=== PATIENT | male | born 1940 | race Caucasian/White ===

== ENCOUNTER 2022-03-17 18:24 | Inpatient (IN) | payer MEDICARE, OTHER ==
[2022-03-17 19:09] LABS: ANION GAP 10.2 mEq/L (7-13); CHLORIDE,CL 98 mmol/L (98-107); SODIUM,NA 134 mmol/L (136-145)
[2022-03-17 19:38] LABS: ESTIMATED GFR 86 mL/min (>=60)
[2022-03-17] MEDS ORDERED: Iopamidol 755 Mg/ML 100 ML Bottle IVPUSH ONE (20:18)
[2022-03-17] MEDS ORDERED: Heparin Sodium 5,000 Units/ML Vial IVPUSH ONE (20:19)
[2022-03-17] MEDS ORDERED: Clopidogrel 75 MG Tab PO ONE (20:26)
[2022-03-17] MEDS ORDERED: Heparin Sodium/0.45% NaCl 25,000 UNITS/500 ML BAG IV SCH (20:30)
[2022-03-17] MEDS ORDERED: Acetaminophen/HYDROcodone 325-5 MG Tab PO PRN (22:20)
[2022-03-17] MEDS ORDERED: Acetaminophen 325 MG Tab PO PRN (22:20)
[2022-03-17] MEDS ORDERED: Polyethylene Glycol 3350 Powder 17 GM Packet PO PRN (22:23)
[2022-03-17] MEDS ORDERED: Docusate Sodium 100 MG Cap PO PRN (22:23)
[2022-03-17] MEDS ORDERED: Bisacodyl 5 MG Tab PO PRN (22:23)
[2022-03-17] MEDS ORDERED: Albuterol/Ipratropium 3.0-0.5 MG/3 ML Neb Soln NEB PRN (22:23)
[2022-03-17] MEDS ORDERED: Ondansetron 4 MG/2 ML SDV IVPUSH PRN (22:23)
[2022-03-17] MEDS ORDERED: HYDROmorphone 0.5 MG/0.5 ML Syringe IVPUSH PRN (22:23)
[2022-03-17] MEDS ORDERED: Metoprolol Tartrate 5 MG/5 ML SDV IVPUSH PRN (23:11)
[2022-03-17] MEDS ORDERED: hydrALAZINE 20 MG/ML SDV IVPUSH PRN (23:12)
[2022-03-17] MEDS ORDERED: Melatonin 3 MG Tab PO PRN (23:20)
[2022-03-17] MEDS ORDERED: Morphine 2 MG/ML SYRINGE IVPUSH PRN (23:21)
[2022-03-17] MEDS ORDERED: Nitroglycerin 0.4 MG Tab.SL SL PRN (23:21)
[2022-03-17] MEDS ORDERED: Ziprasidone Mesylate 20 MG Vial IM PRN (23:27)
[2022-03-17] MEDS ORDERED: Sodium Chloride 0.9% 1,000 ML IV SCH (23:30)
[2022-03-18] MEDS ORDERED: Heparin Sodium 5,000 Units/ML Vial IVPUSH ONE (05:03)
[2022-03-18 05:56] LABS: ANION GAP 12.1 mEq/L (7-13)
[2022-03-18] MEDS ORDERED: Dextrose 5%-0.9% NaCl 1,000 ML IV SCH (08:30)
[2022-03-18 08:35] VITALS: BP 122/75; PULSE 73
[2022-03-18] MEDS ORDERED: Clopidogrel 75 MG Tab PO SCH (09:00)
== END 2022-03-18 09:45 | DRG 281 ==
LOC: DL.ED 18:24 → DL.MS 21:35
PROVIDERS: ADMIT Internal Medicine; ATTEND Internal Medicine
DX: I21.4 Non-ST elevation (NSTEMI) myocardial infarction (principal); E87.1 Hypo-osmolality and hyponatremia; M19.90 Unspecified osteoarthritis, unspecified site; E78.5 Hyperlipidemia, unspecified; F17.200 Nicotine dependence, unspecified, uncomplicated; F17.210 Nicotine dependence, cigarettes, uncomplicated; E88.09 Other disorders of plasma-protein metabolism, not elsewhere classified; R73.9 Hyperglycemia, unspecified; I10 Essential (primary) hypertension; F10.20 Alcohol dependence, uncomplicated; L40.9 Psoriasis, unspecified; Z71.6 Tobacco abuse counseling; Z20.822 Contact with and (suspected) exposure to COVID-19
CPT/HCPCS: 36415; 71045; 71260; 80053; 80061; 80307; 81001; 83605; 83735; 83880; 84484; 85025; 85379; 85610; 85730; 93005; 96365; 99285-25; A9270-GY; J1644; Q9967; U0002

== ENCOUNTER 2022-09-07 08:02 | Day surgery (SDC) | payer MEDICARE, OTHER ==
[~2022-09-07 08:02] MED LIST: Acetaminophen 325 MG Tab PO PRN; Acetaminophen/Codeine 300-30 MG Tab PO PRN; Apraclonidine 0.5% Ophth Soln 5 ML Bot EYERT ONE; Balanced Salt Solution Ophth Irrig 500 ML Bottle IOCULAR ONE; Cataract Ophth Solution EYERT ONE; Chondroitin Sulfate/Hyaluronate Sodium Ophth Inj 0.75 ML Syringe EYERT ONE; Dexamethasone/Neomycin/Polymyxin B Ophth Oint 3.5 GM Tube EYERT ONE; Diclofenac Sodium 0.1% Ophth Soln 5 ML Bottle EYERT ONE; Lidocaine 1% 30 ML SDV ONE; Moxifloxacin 0.5% Ophth Soln 3 ML Bottle EYERT ONE; Ondansetron 4 MG/2 ML SDV IVPUSH PRN; Phenylephrine 10% Ophth Soln 5 ML Bot EYERT PRN; Povidone-Iodine 5% Sterile Ophth Soln 30 ML Bottle EYERT ONE; Proparacaine 0.5% Ophth Soln 15 ML Bottle EYERT ONE; Sodium Chloride 0.9% 10 ML Syringe FLUSH PRN; Timolol Maleate 0.5% Ophth Soln 5 ML Bottle EYERT ONE; Tropicamide 1% Ophth Soln 15 ML Bottle EYERT ONE; Vancomycin 500 MG SDV EYERT ONE
[2022-09-07] MEDS ORDERED: Dexamethasone 4 MG/ML SDV IV ONE (08:03)
[2022-09-07] MEDS ORDERED: Midazolam 1 MG/ML 2 ML SDV IV ONE (08:03)
[2022-09-07] MEDS ORDERED: Sodium Chloride 0.9% 10 ML Syringe IV ONE (08:03)
[2022-09-07] MEDS ORDERED: Proparacaine 0.5% Ophth Soln 15 ML Bottle EYERT ONE (10:19)
[2022-09-07] MEDS ORDERED: Povidone-Iodine 5% Sterile Ophth Soln 30 ML Bottle EYERT ONE (10:19)
[2022-09-07] MEDS ORDERED: Dexamethasone/Neomycin/Polymyxin B Ophth Oint 3.5 GM Tube EYERT ONE (10:21)
[2022-09-07] MEDS ORDERED: Lidocaine 1% 30 ML SDV ONE (10:22)
[2022-09-07] MEDS ORDERED: Balanced Salt Solution Ophth Irrig 500 ML Bottle IOCULAR ONE (10:23)
[2022-09-07] MEDS ORDERED: Vancomycin 500 MG SDV EYERT ONE (10:24)
[2022-09-07] MEDS ORDERED: Chondroitin Sulfate/Hyaluronate Sodium Ophth Inj 0.75 ML Syringe EYERT ONE (10:25)
[2022-09-07] MEDS ORDERED: Dexamethasone 4 MG/ML SDV ONE (10:33)
[2022-09-07 10:48] VITALS: PULSE 52
[2022-09-07 11:11] VITALS: BP 156/83
== END 2022-09-07 11:17 | disposition home or self-care (01) ==
LOC: DL.SDS 08:02
PROVIDERS: ATTEND Ophthalmology
DX: H25.811 Combined forms of age-related cataract, right eye (principal); I10 Essential (primary) hypertension; E78.5 Hyperlipidemia, unspecified; F17.210 Nicotine dependence, cigarettes, uncomplicated; Z79.899 Other long term (current) drug therapy; Z79.82 Long term (current) use of aspirin
CPT/HCPCS: 00142; 66984; A9270; J1100; J2250; J3370; J3490; V2632

== ENCOUNTER 2022-09-11 15:31 | Inpatient (IN) | payer MEDICARE, OTHER ==
[2022-09-11] MEDS ORDERED: diphenhydrAMINE 50 MG/ML SDV IVPUSH ONE (17:14)
[2022-09-11] MEDS ORDERED: HYDROmorphone 0.5 MG/0.5 ML Syringe IVPUSH ONE (17:15)
[2022-09-11] MEDS ORDERED: diphenhydrAMINE 50 MG/ML SDV IV ONE (17:29)
[2022-09-11] MEDS ORDERED: HYDROmorphone 1 MG/ML Syringe IV ONE ×2 (17:29→19:13)
[2022-09-11 17:41] LABS: ANION GAP 14.6 mEq/L (7-13); CHLORIDE,CL 98 mmol/L (98-107); SODIUM,NA 134 mmol/L (136-145)
[2022-09-11 17:42] LABS: ESTIMATED GFR 69 mL/min (>=60)
[2022-09-11] MEDS ORDERED: Sodium Chloride 0.9% 1,000 ML IV ONE ×2 (17:54→19:13)
[2022-09-11 18:11] LABS: AMPHETAMINES,URINE NEGATIVE (NEGATIVE); BARBITURATES,URINE NEGATIVE (NEGATIVE); BENZODIAZEPINE,URINE NEGATIVE (NEGATIVE); MDMA (ECSTASY), URINE NEGATIVE (NEGATIVE); METHADONE,URINE NEGATIVE (NEGATIVE); METHAMPHETAMINES,URINE NEGATIVE (NEGATIVE); OPIATES,URINE NEGATIVE (NEGATIVE); OXYCODONE,URINE NEGATIVE (NEGATIVE); PHENCYCLIDINE,URINE NEGATIVE (NEGATIVE); TCA,URINE NEGATIVE (NEGATIVE)
[2022-09-11 18:15] LABS: CORONAVIRUS COVID-19 NAA NEGATIVE (NEGATIVE); RESPIRATORY SYNCYTIAL VIR NAA POSITIVE (NEGATIVE)
[2022-09-11 18:29] LABS: PTT,PARTIAL THROMBOPLSTIN TIME 26.5 SEC (22.0-34.0)
[2022-09-11] MEDS ORDERED: HYDROmorphone 1 MG/ML Syringe IVPUSH ONE (18:42)
[2022-09-11] MEDS ORDERED: Acetaminophen/HYDROcodone 325-5 MG Tab PO PRN (22:25)
[2022-09-11] MEDS ORDERED: Magnesium Hydroxide 400 MG/5 ML Susp 30 ML Cup PO PRN (22:25)
[2022-09-11] MEDS ORDERED: HYDROmorphone 0.5 MG/0.5 ML Syringe IVPUSH PRN (22:25)
[2022-09-11] MEDS ORDERED: Albuterol/Ipratropium 3.0-0.5 MG/3 ML Neb Soln NEB PRN (22:25)
[2022-09-11] MEDS ORDERED: Ondansetron 4 MG/2 ML SDV IVPUSH PRN (22:25)
[2022-09-11] MEDS ORDERED: Polyethylene Glycol 3350 Powder 17 GM Packet PO PRN (22:25)
[2022-09-11] MEDS ORDERED: hydrALAZINE 20 MG/ML SDV IVPUSH PRN (22:29)
[2022-09-11] MEDS ORDERED: Metoprolol Tartrate 5 MG/5 ML SDV IVPUSH PRN (22:29)
[2022-09-12] MEDS: Acetaminophen 325 MG Tab PO PRN ×2 (01:38→21:20)
[2022-09-12] MEDS ORDERED: Sodium Chloride 0.9% 500 ML IV SCH ×2 (02:45→04:00)
[2022-09-12] MEDS ORDERED: Midodrine 2.5 MG Tab PO ONE (02:47)
[2022-09-12] MEDS ORDERED: Lactated Ringers 1,000 ML IV SCH (04:30)
[2022-09-12] MEDS ORDERED: Fluconazole/Normal Saline 200 MG in Premix Bag 1 BAG IV ONE (04:59)
[2022-09-12 05:32] LABS: ANION GAP 11.1 mEq/L (7-13)
[2022-09-12] MEDS: Piperacillin/Tazobactam 3.375 GM in Sodium Chloride 0.9% 100 ML IV SCH ×3 (05:58→19:06)
[2022-09-12] MEDS ORDERED: Magnesium Sulfate/Water 2 GM in Premix Bag 1 BAG IV ONE (06:11)
[2022-09-12] MEDS: Saccharomyces Boulardii (Probiotic) 250 MG Cap PO SCH ×2 (09:27→21:20)
[2022-09-12] MEDS: Nicotine 21 MG/24 Hr Patch TRDERM SCH (09:27)
[2022-09-12] MEDS: Metoprolol Tartrate 25 MG Tab PO SCH ×2 (09:31→21:25)
[2022-09-12] MEDS: prednisoLONE Acetate 1% Ophth Susp 5 ML Bottle EYERT SCH ×2 (18:59→21:27)
[2022-09-12] MEDS: OFLOXACIN OPTH EYERT SCH ×2 (18:59→21:27)
[2022-09-12] MEDS ORDERED: Melatonin 3 MG Tab PO PRN (20:38)
[2022-09-12] MEDS: guaiFENesin/Dextromethorphan 100-10 MG/5 ML Soln 5 ML Cup PO PRN (21:20)
[2022-09-12] MEDS: KETOROLAC 0.5% EYERT SCH (21:27)
[2022-09-12] MEDS: OPTH EYERT SCH (21:27)
[2022-09-13] MEDS: Piperacillin/Tazobactam 3.375 GM in Sodium Chloride 0.9% 100 ML IV SCH ×5 (00:36→23:36)
[2022-09-13] MEDS: Midodrine 2.5 MG Tab PO PRN ×2 (00:44→23:57)
[2022-09-13] MEDS ORDERED: Pantoprazole 40 MG Tab.CR PO ONE (07:36)
[2022-09-13] MEDS ORDERED: Potassium Chloride 10 MEQ Tab.ER PO ONE (09:00)
[2022-09-13] MEDS ORDERED: Ergocalciferol (Vitamin D2) 1.25 MG Cap PO SCH (09:00)
[2022-09-13] MEDS: Metoprolol Tartrate 25 MG Tab PO SCH ×2 (09:32→21:07)
[2022-09-13] MEDS: Naproxen 250 MG Tab PO SCH ×2 (09:32→21:06)
[2022-09-13] MEDS: Saccharomyces Boulardii (Probiotic) 250 MG Cap PO SCH ×2 (09:33→21:05)
[2022-09-13] MEDS: Nicotine 21 MG/24 Hr Patch TRDERM SCH (09:34)
[2022-09-13] MEDS: Fluconazole/Normal Saline 100 MG in Premix Bag 1 BAG IV SCH (09:35)
[2022-09-13] MEDS: OPTH EYERT SCH ×2 (09:41→21:09)
[2022-09-13] MEDS: KETOROLAC 0.5% EYERT SCH ×2 (09:41→21:09)
[2022-09-13] MEDS: prednisoLONE Acetate 1% Ophth Susp 5 ML Bottle EYERT SCH ×4 (09:42→21:08)
[2022-09-13] MEDS: OFLOXACIN OPTH EYERT SCH ×4 (09:42→21:04)
[2022-09-13] MEDS: guaiFENesin/Dextromethorphan 100-10 MG/5 ML Soln 5 ML Cup PO PRN ×2 (10:50→23:59)
[2022-09-13] MEDS: Acetaminophen 325 MG Tab PO PRN (16:56)
[2022-09-13] MEDS: Pantoprazole 40 MG Tab.CR PO SCH (16:56)
[2022-09-13] MEDS: QUEtiapine 25 MG Tab PO SCH (21:06)
[2022-09-13] MEDS: Sodium Chloride 0.9% 10 ML Syringe FLUSH PRN (23:35)
[2022-09-14] MEDS: Pantoprazole 40 MG Tab.CR PO SCH ×2 (06:10→17:43)
[2022-09-14] MEDS: Piperacillin/Tazobactam 3.375 GM in Sodium Chloride 0.9% 100 ML IV SCH ×3 (06:11→17:51)
[2022-09-14] MEDS: Sodium Chloride 0.9% 10 ML Syringe FLUSH PRN (06:34)
[2022-09-14] MEDS: Metoprolol Tartrate 25 MG Tab PO SCH ×2 (09:55→21:45)
[2022-09-14] MEDS: Acetaminophen 325 MG Tab PO PRN (09:56)
[2022-09-14] MEDS: Fluconazole/Normal Saline 100 MG in Premix Bag 1 BAG IV SCH (09:56)
[2022-09-14] MEDS: Saccharomyces Boulardii (Probiotic) 250 MG Cap PO SCH ×2 (09:56→21:41)
[2022-09-14] MEDS: Naproxen 250 MG Tab PO SCH ×2 (09:56→21:42)
[2022-09-14] MEDS: KETOROLAC 0.5% EYERT SCH ×2 (09:57→21:46)
[2022-09-14] MEDS: Nicotine 21 MG/24 Hr Patch TRDERM SCH (09:57)
[2022-09-14] MEDS: OPTH EYERT SCH ×2 (09:57→21:46)
[2022-09-14] MEDS: prednisoLONE Acetate 1% Ophth Susp 5 ML Bottle EYERT SCH ×4 (09:58→21:43)
[2022-09-14] MEDS: OFLOXACIN OPTH EYERT SCH ×4 (09:58→21:40)
[2022-09-14] MEDS: guaiFENesin/Dextromethorphan 100-10 MG/5 ML Soln 5 ML Cup PO PRN ×2 (12:03→21:41)
[2022-09-14] MEDS: Albumin Human 25 GM in Premix Bag 1 BAG IV SCH ×3 (14:40→21:10)
[2022-09-14] MEDS ORDERED: Benzocaine/Cetylpyridinium/Menthol Lozenge MUCMEM PRN (17:40)
[2022-09-14] MEDS: QUEtiapine 25 MG Tab PO SCH (21:42)
[2022-09-15] MEDS: Sodium Chloride 0.9% 10 ML Syringe FLUSH PRN ×4 (00:19→09:08)
[2022-09-15] MEDS: Piperacillin/Tazobactam 3.375 GM in Sodium Chloride 0.9% 100 ML IV SCH ×4 (00:21→17:21)
[2022-09-15] MEDS: Albumin Human 25 GM in Premix Bag 1 BAG IV SCH (04:34)
[2022-09-15] MEDS: Pantoprazole 40 MG Tab.CR PO SCH ×2 (05:01→15:36)
[2022-09-15] MEDS: guaiFENesin/Dextromethorphan 100-10 MG/5 ML Soln 5 ML Cup PO PRN (05:01)
[2022-09-15 07:27] LABS: ANION GAP 10.8 mEq/L (7-13)
[2022-09-15] MEDS: Fluconazole/Normal Saline 100 MG in Premix Bag 1 BAG IV SCH (09:07)
[2022-09-15] MEDS: Nicotine 21 MG/24 Hr Patch TRDERM SCH (09:08)
[2022-09-15] MEDS: Naproxen 250 MG Tab PO SCH ×2 (09:09→21:00)
[2022-09-15] MEDS: Metoprolol Tartrate 25 MG Tab PO SCH ×2 (09:09→21:06)
[2022-09-15] MEDS: Saccharomyces Boulardii (Probiotic) 250 MG Cap PO SCH ×2 (09:10→20:58)
[2022-09-15] MEDS: OPTH EYERT SCH ×2 (09:21→21:07)
[2022-09-15] MEDS: KETOROLAC 0.5% EYERT SCH ×2 (09:21→21:07)
[2022-09-15] MEDS: prednisoLONE Acetate 1% Ophth Susp 5 ML Bottle EYERT SCH (09:22)
[2022-09-15] MEDS: PREDNISOLONE ACETATE 1% EYERT SCH ×3 (09:23→21:07)
[2022-09-15] MEDS ORDERED: Mineral Oil/White Petrolatum Crm 113 GM Jar TOP PRN (12:53)
[2022-09-15] MEDS: QUEtiapine 25 MG Tab PO SCH (20:58)
[2022-09-16] MEDS: Piperacillin/Tazobactam 3.375 GM in Sodium Chloride 0.9% 100 ML IV SCH ×3 (01:07→13:00)
[2022-09-16] MEDS: Pantoprazole 40 MG Tab.CR PO SCH (06:09)
[2022-09-16 07:17] LABS: ANION GAP 11.9 mEq/L (7-13)
[2022-09-16 08:05] VITALS: BP 121/77
[2022-09-16] MEDS: Saccharomyces Boulardii (Probiotic) 250 MG Cap PO SCH (09:15)
[2022-09-16] MEDS: Nicotine 21 MG/24 Hr Patch TRDERM SCH (09:15)
[2022-09-16] MEDS: Metoprolol Tartrate 25 MG Tab PO SCH (09:16)
[2022-09-16] MEDS: Naproxen 250 MG Tab PO SCH (09:16)
[2022-09-16] MEDS: PREDNISOLONE ACETATE 1% EYERT SCH (09:16)
[2022-09-16 09:18] VITALS: PULSE 78
[2022-09-16] MEDS: OPTH EYERT SCH (09:18)
[2022-09-16] MEDS: KETOROLAC 0.5% EYERT SCH (09:18)
[2022-09-16] MEDS: Fluconazole/Normal Saline 100 MG in Premix Bag 1 BAG IV SCH (10:23)
== END 2022-09-16 13:41 | disposition swing bed (61) | DRG 871 ==
LOC: DL.ED 15:31 → DL.MS 19:34 → DL.ED 22:09
PROVIDERS: ADMIT Internal Medicine; ATTEND Internal Medicine
DX: A41.9 Sepsis, unspecified organism (principal); J12.1 Respiratory syncytial virus pneumonia; S09.8XXA Other specified injuries of head, initial encounter; E43 Unspecified severe protein-calorie malnutrition; L03.116 Cellulitis of left lower limb; D84.9 Immunodeficiency, unspecified; B37.0 Candidal stomatitis; E87.1 Hypo-osmolality and hyponatremia; J21.0 Acute bronchiolitis due to respiratory syncytial virus; R65.20 Severe sepsis without septic shock; W19.XXXA Unspecified fall, initial encounter; R79.89 Other specified abnormal findings of blood chemistry; E88.09 Other disorders of plasma-protein metabolism, not elsewhere classified; M50.30 Other cervical disc degeneration, unspecified cervical region; E55.9 Vitamin D deficiency, unspecified; F17.210 Nicotine dependence, cigarettes, uncomplicated; F10.20 Alcohol dependence, uncomplicated; I95.9 Hypotension, unspecified; E83.42 Hypomagnesemia; E87.6 Hypokalemia; R73.9 Hyperglycemia, unspecified; H54.7 Unspecified visual loss; H91.90 Unspecified hearing loss, unspecified ear; I10 Essential (primary) hypertension; E78.5 Hyperlipidemia, unspecified; I25.10 Atherosclerotic heart disease of native coronary artery without angina pectoris; L30.9 Dermatitis, unspecified; N42.9 Disorder of prostate, unspecified; M19.90 Unspecified osteoarthritis, unspecified site; Z79.82 Long term (current) use of aspirin; I25.2 Old myocardial infarction; Z95.5 Presence of coronary angioplasty implant and graft; Z79.899 Other long term (current) drug therapy; Z79.02 Long term (current) use of antithrombotics/antiplatelets; Z20.822 Contact with and (suspected) exposure to COVID-19; Y92.009 Unspecified place in unspecified non-institutional (private) residence as the place of occurrence of the external cause; Z68.22 Body mass index [BMI] 22.0-22.9, adult
CPT/HCPCS: 0241U; 36415; 70450; 71045; 72125; 72170; 80048; 80053; 80202; 80305; 80307; 81001; 82306; 83605; 83735; 83880; 84145; 84439; 84443; 84484; 85025; 85610; 85651; 85730; 86140; 86695; 86696; 87040; 93971; 97110; 97161; 97165; 97530; 97535; 99285; A9270-GY; J1170; J1200; J1450; J2543; J3370; J3475; J3490; J7030; J7040; J7050; J7120; P9047

== ENCOUNTER 2022-09-16 09:12 | Inpatient (IN) | payer MEDICARE, OTHER ==
[~2022-09-16 09:12] MED LIST changes: -Acetaminophen 325 MG Tab PO PRN; -Acetaminophen/Codeine 300-30 MG Tab PO PRN; -Apraclonidine 0.5% Ophth Soln 5 ML Bot EYERT ONE; -Balanced Salt Solution Ophth Irrig 500 ML Bottle IOCULAR ONE; -Cataract Ophth Solution EYERT ONE; -Chondroitin Sulfate/Hyaluronate Sodium Ophth Inj 0.75 ML Syringe EYERT ONE; -Dexamethasone/Neomycin/Polymyxin B Ophth Oint 3.5 GM Tube EYERT ONE; -Diclofenac Sodium 0.1% Ophth Soln 5 ML Bottle EYERT ONE; -Lidocaine 1% 30 ML SDV ONE; -Moxifloxacin 0.5% Ophth Soln 3 ML Bottle EYERT ONE; -Ondansetron 4 MG/2 ML SDV IVPUSH PRN; -Phenylephrine 10% Ophth Soln 5 ML Bot EYERT PRN; -Povidone-Iodine 5% Sterile Ophth Soln 30 ML Bottle EYERT ONE; -Proparacaine 0.5% Ophth Soln 15 ML Bottle EYERT ONE; -Sodium Chloride 0.9% 10 ML Syringe FLUSH PRN; -Timolol Maleate 0.5% Ophth Soln 5 ML Bottle EYERT ONE; -Tropicamide 1% Ophth Soln 15 ML Bottle EYERT ONE; -Vancomycin 500 MG SDV EYERT ONE; +prednisoLONE Acetate 1% Ophth Susp 5 ML Bottle EYERT SCH
[2022-09-16] MEDS ORDERED: Albuterol/Ipratropium 3.0-0.5 MG/3 ML Neb Soln NEB PRN (10:39)
[2022-09-16] MEDS ORDERED: Acetaminophen/HYDROcodone 325-5 MG Tab PO PRN (10:39)
[2022-09-16] MEDS ORDERED: HYDROmorphone 0.5 MG/0.5 ML Syringe IVPUSH PRN (10:39)
[2022-09-16] MEDS ORDERED: Sodium Chloride 0.9% 10 ML Syringe FLUSH PRN ×2 (10:39)
[2022-09-16] MEDS ORDERED: Polyethylene Glycol 3350 Powder 17 GM Packet PO PRN (10:39)
[2022-09-16] MEDS ORDERED: diphenhydrAMINE 50 MG/ML SDV IV ONE (10:39)
[2022-09-16] MEDS ORDERED: Mineral Oil/White Petrolatum Crm 113 GM Jar TOP PRN (10:39)
[2022-09-16] MEDS ORDERED: Magnesium Hydroxide 400 MG/5 ML Susp 30 ML Cup PO PRN (10:39)
[2022-09-16] MEDS ORDERED: Ondansetron 4 MG/2 ML SDV IVPUSH PRN (10:39)
[2022-09-16] MEDS ORDERED: Midodrine 2.5 MG Tab PO PRN (10:39)
[2022-09-16] MEDS ORDERED: HYDROmorphone 1 MG/ML Syringe IV ONE ×2 (10:39)
[2022-09-16] MEDS ORDERED: Melatonin 3 MG Tab PO PRN (10:39)
[2022-09-16] MEDS ORDERED: guaiFENesin/Dextromethorphan 100-10 MG/5 ML Soln 5 ML Cup PO PRN (10:39)
[2022-09-16] MEDS ORDERED: Benzocaine/Cetylpyridinium/Menthol Lozenge MUCMEM PRN (10:39)
[2022-09-16] MEDS: prednisoLONE Acetate 1% Ophth Susp 5 ML Bottle EYERT SCH ×2 (15:49→22:02)
[2022-09-16] MEDS: Pantoprazole 40 MG Tab.CR PO SCH (16:05)
[2022-09-16] MEDS: Saccharomyces Boulardii (Probiotic) 250 MG Cap PO SCH (22:01)
[2022-09-16] MEDS: KETOROLAC EYERT SCH (22:01)
[2022-09-16] MEDS: [UNRECOGNIZED DRUG - OTHER] EYERT SCH (22:01)
[2022-09-16] MEDS: Check Patch TRDERM SCH (22:01)
[2022-09-16] MEDS: Sodium Chloride 0.9% 10 ML Syringe FLUSH SCH (22:02)
[2022-09-16] MEDS: QUEtiapine 25 MG Tab PO SCH (22:02)
[2022-09-16] MEDS: Metoprolol Tartrate 25 MG Tab PO SCH (22:02)
[2022-09-16] MEDS: Piperacillin/Tazobactam 4.5 GM in Sodium Chloride 0.9% 100 ML IV SCH (22:03)
[2022-09-17] MEDS: Pantoprazole 40 MG Tab.CR PO SCH ×2 (05:20→16:09)
[2022-09-17] MEDS: Piperacillin/Tazobactam 4.5 GM in Sodium Chloride 0.9% 100 ML IV SCH ×3 (05:20→22:26)
[2022-09-17 07:24] LABS: ANION GAP 11.7 mEq/L (7-13)
[2022-09-17] MEDS: Saccharomyces Boulardii (Probiotic) 250 MG Cap PO SCH ×2 (08:22→20:01)
[2022-09-17] MEDS: Metoprolol Tartrate 25 MG Tab PO SCH ×2 (08:23→20:10)
[2022-09-17] MEDS: Clopidogrel 75 MG Tab PO SCH (08:24)
[2022-09-17] MEDS: KETOROLAC EYERT SCH ×2 (08:26→20:05)
[2022-09-17] MEDS: prednisoLONE Acetate 1% Ophth Susp 5 ML Bottle EYERT SCH ×3 (08:26→20:07)
[2022-09-17] MEDS: [UNRECOGNIZED DRUG - OTHER] EYERT SCH ×2 (08:26→20:05)
[2022-09-17] MEDS: Nicotine 21 MG/24 Hr Patch TRDERM SCH (09:34)
[2022-09-17] MEDS: Sodium Chloride 0.9% 10 ML Syringe FLUSH SCH ×2 (09:34→20:06)
[2022-09-17] MEDS: Fluconazole/Normal Saline 100 MG in Premix Bag 1 BAG IV SCH (09:35)
[2022-09-17] MEDS: QUEtiapine 25 MG Tab PO SCH (20:01)
[2022-09-17] MEDS: Check Patch TRDERM SCH (20:03)
[2022-09-18] MEDS: Piperacillin/Tazobactam 4.5 GM in Sodium Chloride 0.9% 100 ML IV SCH ×3 (05:24→22:20)
[2022-09-18] MEDS: Pantoprazole 40 MG Tab.CR PO SCH ×2 (05:24→16:28)
[2022-09-18 07:51] LABS: ANION GAP 10.7 mEq/L (7-13)
[2022-09-18] MEDS: Fluconazole/Normal Saline 100 MG in Premix Bag 1 BAG IV SCH (08:34)
[2022-09-18] MEDS: Clopidogrel 75 MG Tab PO SCH (08:48)
[2022-09-18] MEDS: Metoprolol Tartrate 25 MG Tab PO SCH ×2 (08:48→22:35)
[2022-09-18] MEDS: Saccharomyces Boulardii (Probiotic) 250 MG Cap PO SCH ×2 (08:48→22:32)
[2022-09-18] MEDS: Nicotine 21 MG/24 Hr Patch TRDERM SCH (08:50)
[2022-09-18] MEDS: [UNRECOGNIZED DRUG - OTHER] EYERT SCH ×2 (08:52→22:31)
[2022-09-18] MEDS: KETOROLAC EYERT SCH ×2 (08:52→22:31)
[2022-09-18] MEDS: prednisoLONE Acetate 1% Ophth Susp 5 ML Bottle EYERT SCH ×3 (08:52→22:30)
[2022-09-18] MEDS: Sodium Chloride 0.9% 10 ML Syringe FLUSH SCH ×2 (08:53→22:20)
[2022-09-18] MEDS: QUEtiapine 25 MG Tab PO SCH (22:32)
[2022-09-18] MEDS: Check Patch TRDERM SCH (22:40)
[2022-09-19] MEDS: Pantoprazole 40 MG Tab.CR PO SCH ×2 (05:24→17:16)
[2022-09-19] MEDS: Piperacillin/Tazobactam 4.5 GM in Sodium Chloride 0.9% 100 ML IV SCH (05:28)
[2022-09-19] MEDS: Acetaminophen 325 MG Tab PO PRN ×2 (05:36→21:17)
[2022-09-19 07:13] LABS: ANION GAP 11.7 mEq/L (7-13)
[2022-09-19] MEDS: Fluconazole/Normal Saline 100 MG in Premix Bag 1 BAG IV SCH (08:35)
[2022-09-19] MEDS: Clopidogrel 75 MG Tab PO SCH (08:37)
[2022-09-19] MEDS: Saccharomyces Boulardii (Probiotic) 250 MG Cap PO SCH ×2 (08:37→21:20)
[2022-09-19] MEDS: Metoprolol Tartrate 25 MG Tab PO SCH ×2 (08:38→21:06)
[2022-09-19] MEDS: KETOROLAC EYERT SCH ×2 (08:40→21:07)
[2022-09-19] MEDS: [UNRECOGNIZED DRUG - OTHER] EYERT SCH ×2 (08:40→21:07)
[2022-09-19] MEDS: Nicotine 21 MG/24 Hr Patch TRDERM SCH (08:41)
[2022-09-19] MEDS: prednisoLONE Acetate 1% Ophth Susp 5 ML Bottle EYERT SCH ×3 (08:42→21:09)
[2022-09-19] MEDS: Sodium Chloride 0.9% 10 ML Syringe FLUSH SCH ×2 (08:53→21:21)
[2022-09-19] MEDS: QUEtiapine 25 MG Tab PO SCH (21:07)
[2022-09-19] MEDS: Check Patch TRDERM SCH (21:18)
[2022-09-20] MEDS: Pantoprazole 40 MG Tab.CR PO SCH (05:52)
[2022-09-20 08:33] VITALS: PULSE 74
[2022-09-20] MEDS ORDERED: Ergocalciferol (Vitamin D2) 1.25 MG Cap PO SCH (09:00)
[2022-09-20] MEDS ORDERED: Fluconazole 100 MG Tab PO SCH (09:00)
[2022-09-20] MEDS: Clopidogrel 75 MG Tab PO SCH (10:06)
[2022-09-20] MEDS: Metoprolol Tartrate 25 MG Tab PO SCH (10:07)
[2022-09-20] MEDS: [UNRECOGNIZED DRUG - OTHER] EYERT SCH (10:09)
[2022-09-20] MEDS: KETOROLAC EYERT SCH (10:09)
[2022-09-20] MEDS: Nicotine 21 MG/24 Hr Patch TRDERM SCH (10:10)
[2022-09-20] MEDS: prednisoLONE Acetate 1% Ophth Susp 5 ML Bottle EYERT SCH (10:10)
[2022-09-20] MEDS: Sodium Chloride 0.9% 10 ML Syringe FLUSH SCH (10:11)
[2022-09-20 10:16] VITALS: BP 134/69
[2022-09-20] MEDS: Saccharomyces Boulardii (Probiotic) 250 MG Cap PO SCH (10:16)
[2022-09-29] MEDS ORDERED: prednisoLONE Acetate 1% Ophth Susp 5 ML Bottle EYERT SCH (09:00)
== END 2022-09-20 13:35 | disposition home or self-care (01) | DRG 602 ==
LOC: DL.MS 10:47
PROVIDERS: ADMIT Internal Medicine; ATTEND Internal Medicine
DX: L03.116 Cellulitis of left lower limb (principal); E43 Unspecified severe protein-calorie malnutrition; E87.1 Hypo-osmolality and hyponatremia; H91.90 Unspecified hearing loss, unspecified ear; I10 Essential (primary) hypertension; E78.5 Hyperlipidemia, unspecified; I25.10 Atherosclerotic heart disease of native coronary artery without angina pectoris; N42.9 Disorder of prostate, unspecified; L30.9 Dermatitis, unspecified; M19.90 Unspecified osteoarthritis, unspecified site; F17.200 Nicotine dependence, unspecified, uncomplicated; F10.20 Alcohol dependence, uncomplicated; E88.09 Other disorders of plasma-protein metabolism, not elsewhere classified; E83.42 Hypomagnesemia; M50.30 Other cervical disc degeneration, unspecified cervical region; I25.2 Old myocardial infarction; Z95.5 Presence of coronary angioplasty implant and graft; Z79.82 Long term (current) use of aspirin; Z79.52 Long term (current) use of systemic steroids; Z79.899 Other long term (current) drug therapy; Z68.22 Body mass index [BMI] 22.0-22.9, adult
CPT/HCPCS: 36415; 80048; 80053; 80202; 83735; 85025; 86140; 87641; 97116-GP; 97161-GP; 97165-GO; 97530-GO; A9270-GY; J1450; J2543; J3370; J3490; J7050

== ENCOUNTER 2022-11-30 07:54 | Day surgery (SDC) | payer MEDICARE, OTHER ==
[~2022-11-30 07:54] MED LIST changes: +Apraclonidine 0.5% Ophth Soln 5 ML Bot EYELF ONE; +Balanced Salt Solution Ophth Irrig 500 ML Bottle IOCULAR ONE; +Chondroitin Sulfate/Hyaluronate Sodium Ophth Inj 0.75 ML Syringe EYELF ONE; +Dexamethasone/Neomycin/Polymyxin B Ophth Oint 3.5 GM Tube EYELF ONE; +Diclofenac Sodium 0.1% Ophth Soln 5 ML Bottle EYELF ONE; +Lidocaine 1% 30 ML SDV ONE; +Povidone-Iodine 5% Sterile Ophth Soln 30 ML Bottle EYELF ONE; +Proparacaine 0.5% Ophth Soln 15 ML Bottle EYELF ONE; +Proparacaine 0.5% Ophth Soln 15 ML Bottle ONE; +Vancomycin 500 MG SDV EYELF ONE; -prednisoLONE Acetate 1% Ophth Susp 5 ML Bottle EYERT SCH
[2022-11-30] MEDS ORDERED: Midazolam 1 MG/ML 2 ML SDV IV ONE (07:55)
[2022-11-30] MEDS ORDERED: Dexamethasone 4 MG/ML SDV IV ONE (07:55)
[2022-11-30] MEDS ORDERED: Sodium Chloride 0.9% 10 ML Syringe IV ONE (07:55)
[2022-11-30] MEDS ORDERED: Phenylephrine 10% Ophth Soln 5 ML Bot EYELF PRN (08:00)
[2022-11-30] MEDS ORDERED: Povidone-Iodine 5% Sterile Ophth Soln 30 ML Bottle EYELF ONE ×2 (08:00→09:34)
[2022-11-30] MEDS ORDERED: Ondansetron 4 MG/2 ML SDV IVPUSH PRN (08:00)
[2022-11-30] MEDS ORDERED: Tropicamide 1% Ophth Soln 15 ML Bottle EYELF ONE (08:00)
[2022-11-30] MEDS ORDERED: Timolol Maleate 0.5% Ophth Soln 5 ML Bottle EYELF ONE (08:00)
[2022-11-30] MEDS ORDERED: Cataract Ophth Solution EYELF ONE (08:00)
[2022-11-30] MEDS ORDERED: Sodium Chloride 0.9% 10 ML Syringe FLUSH PRN (08:00)
[2022-11-30] MEDS ORDERED: Moxifloxacin 0.5% Ophth Soln 3 ML Bottle EYELF ONE (08:00)
[2022-11-30] MEDS ORDERED: Acetaminophen/Codeine 300-30 MG Tab PO PRN (08:00)
[2022-11-30] MEDS ORDERED: Proparacaine 0.5% Ophth Soln 15 ML Bottle EYELF ONE ×2 (08:00→09:34)
[2022-11-30] MEDS ORDERED: Acetaminophen 325 MG Tab PO PRN (08:00)
[2022-11-30] MEDS ORDERED: Lidocaine 1% 30 ML SDV ONE (09:34)
[2022-11-30] MEDS ORDERED: Apraclonidine 0.5% Ophth Soln 5 ML Bot EYELF ONE (09:34)
[2022-11-30] MEDS ORDERED: Chondroitin Sulfate/Hyaluronate Sodium Ophth Inj 0.75 ML Syringe EYELF ONE (09:34)
[2022-11-30] MEDS ORDERED: Dexamethasone/Neomycin/Polymyxin B Ophth Oint 3.5 GM Tube EYELF ONE (09:34)
[2022-11-30] MEDS ORDERED: Vancomycin 500 MG SDV EYELF ONE (09:34)
[2022-11-30] MEDS ORDERED: Diclofenac Sodium 0.1% Ophth Soln 5 ML Bottle EYELF ONE (09:34)
[2022-11-30] MEDS ORDERED: Balanced Salt Solution Ophth Irrig 500 ML Bottle IOCULAR ONE (09:34)
[2022-11-30] MEDS ORDERED: Dexamethasone 4 MG/ML SDV ONE (09:37)
[2022-11-30 14:27] VITALS: PULSE 56
[2022-11-30 14:32] VITALS: BP 151/78
== END 2022-11-30 11:00 | disposition home or self-care (01) ==
LOC: DL.SDS 07:54
PROVIDERS: ATTEND Ophthalmology
DX: H25.812 Combined forms of age-related cataract, left eye (principal); I10 Essential (primary) hypertension; I25.10 Atherosclerotic heart disease of native coronary artery without angina pectoris; E78.5 Hyperlipidemia, unspecified; R73.02 Impaired glucose tolerance (oral); L40.9 Psoriasis, unspecified; F17.210 Nicotine dependence, cigarettes, uncomplicated; Z98.890 Other specified postprocedural states; Z79.899 Other long term (current) drug therapy; Z79.82 Long term (current) use of aspirin
CPT/HCPCS: A9270-GY; J1100; J2250; J3370; J3490; V2632

== ENCOUNTER 2023-12-16 11:12 | Emergency (ER) | payer MEDICARE, OTHER ==
[2023-12-16 12:35] LABS: BASOPHILS PERCENT AUTO 0.2 % (0.0-1.0); EOSINOPHILS PERCENT AUTO 1.4 % (1.0-3.0); HEMATOCRIT 47.3 % (40.0-54.0); HEMOGLOBIN 15.9 g/dL (14.0-18.0); LYMPHOCYTES PERCENT AUTO 5.7 % (20.5-50.1); MEAN CORPUSCULAR HEMOGLOBIN 33.2 pg (27.0-34.0); MEAN CORPUSCULAR HGB CONC 33.6 g/dL (33.0-35.0); MEAN CORPUSCULAR VOLUME 98.7 fL (80-100); MONOCYTES PERCENT AUTO 4.9 % (2-8); NEUTROPHILS PERCENT AUTO 87.8 % (42.2-75.2); PLATELET COUNT,PLT 375 10^3/uL (150-450); RED BLOOD CELL COUNT 4.79 10^6/uL (4.6-6.2); WHITE BLOOD CELL COUNT,WBC 12.9 10^3/uL (5.0-10.0)
[2023-12-16] MEDS: cefTRIAXone 1 GM Vial IVPUSH ONE (12:39)
[2023-12-16] MEDS: Sodium Chloride 0.9% 10 ML Syringe FLUSH PRN (12:40)
[2023-12-16 12:53] LABS: A/G RATIO 0.9; ALBUMIN 3.9 g/dL (3.4-5.0); ANION GAP 14.9 mEq/L (7-13); BILIRUBIN TOTAL 0.8 mg/dL (0.2-1.0); BUN/CREATININE RATIO 19.8 (No establ ref range); CALCIUM 9.2 mg/dL (8.5-10.1); CREATININE 0.86 mg/dL (0.70-1.30); EST CRCL DRUG DOSING (CG) 62.8 mL/min; POTASSIUM,K 3.9 mmol/L (3.5-5.1); PROTEIN TOTAL,TP 8.2 g/dL (6.4-8.2)
[2023-12-16] MEDS: Take Home: Clindamycin HCl 150 MG, 12 Cap Pack PO ONE (14:24)
[2023-12-16 14:59] VITALS: BP 188/106; PULSE 63
== END 2023-12-16 14:54 | disposition home or self-care (01) ==
LOC: DL.ED 11:12
DX: L03.113 Cellulitis of right upper limb (principal); I10 Essential (primary) hypertension; I25.10 Atherosclerotic heart disease of native coronary artery without angina pectoris; I25.2 Old myocardial infarction; J44.9 Chronic obstructive pulmonary disease, unspecified; Z79.82 Long term (current) use of aspirin; Z79.899 Other long term (current) drug therapy
CPT/HCPCS: 36415; 73090-LT; 80053; 83605; 85025; 87040; 87077; 87186; 96374; 99283-25; 99284; A9270-GY; J0696; J3490

== ENCOUNTER 2024-03-10 13:46 | Emergency (ER) | payer MEDICARE, OTHER ==
[2024-03-10 14:41] VITALS: BP 188/101; PULSE 54
[2024-03-10 14:51] LABS: APPEARANCE,URINE CLEAR (CLEAR); BILIRUBIN,URINE NEGATIVE (NEGATIVE); COLOR,URINE YELLOW (YELLOW); GLUCOSE,URINE NEGATIVE (NEGATIVE); KETONES,URINE NEGATIVE (NEGATIVE); LEUKOCYTE ESTERASE,URINE NEGATIVE (NEGATIVE); NITRITE,URINE NEGATIVE (NEGATIVE); OCCULT BLOOD,URINE TRACE-INTACT (NEGATIVE); PROTEIN,URINE NEGATIVE (NEGATIVE); UROBILINOGEN,URINE 0.2 mg/dL (0.2-1.0)
[2024-03-10 14:54] LABS: BASOPHILS PERCENT AUTO 0.7 % (0.0-1.0); EOSINOPHILS PERCENT AUTO 4.2 % (1.0-3.0); HEMATOCRIT 43.8 % (40.0-54.0); MEAN CORPUSCULAR HEMOGLOBIN 33.3 pg (27.0-34.0); MEAN CORPUSCULAR HGB CONC 34.2 g/dL (33.0-35.0); MEAN CORPUSCULAR VOLUME 97.3 fL (80-100); MONOCYTES PERCENT AUTO 9.1 % (2-8); PLATELET COUNT,PLT 215 10^3/uL (150-450); WHITE BLOOD CELL COUNT,WBC 7.2 10^3/uL (5.0-10.0)
[2024-03-10 14:55] LABS: INR 1.2 (0.9-1.2); PROTHROMBIN TIME 12.4 SEC (9.0-12.0); PTT,PARTIAL THROMBOPLSTIN TIME 20.1 SEC (22.0-34.0)
[2024-03-10 14:59] LABS: A/G RATIO 0.9; ALBUMIN 3.5 g/dL (3.4-5.0); ANION GAP 12.2 mEq/L (7-13); BILIRUBIN TOTAL 0.4 mg/dL (0.2-1.0); BUN/CREATININE RATIO 21.3 (No establ ref range); CALCIUM 9.3 mg/dL (8.5-10.1); CREATININE 0.89 mg/dL (0.70-1.30); EST CRCL DRUG DOSING (CG) 57.87 mL/min; POTASSIUM,K 4.2 mmol/L (3.5-5.1); PROTEIN TOTAL,TP 7.2 g/dL (6.4-8.2)
[2024-03-10 15:06] LABS: BACTERIA,URINE RARE /HPF (0-FEW/HPF); EPITHELIAL CELLS,URINE RARE /HPF (NOT SEEN); RBC,URINE 0-5 /HPF (0-5); WBC,URINE NOT SEEN /HPF (0-5/HPF)
== END 2024-03-10 16:47 | disposition home or self-care (01) ==
LOC: DL.ED 13:46
DX: K21.9 Gastro-esophageal reflux disease without esophagitis (principal); I10 Essential (primary) hypertension; I25.10 Atherosclerotic heart disease of native coronary artery without angina pectoris; I25.2 Old myocardial infarction; Z95.5 Presence of coronary angioplasty implant and graft; Z79.2 Long term (current) use of antibiotics; Z79.899 Other long term (current) drug therapy; Z79.82 Long term (current) use of aspirin
CPT/HCPCS: 36415; 71045; 80053; 81001; 83690; 83735; 84484; 85025; 85610; 85651; 85730; 86140; 93005; 99285

== ENCOUNTER 2024-05-13 15:30 | Emergency (ER) | payer MEDICARE, OTHER ==
[2024-05-13 16:08] VITALS: PULSE 73
[2024-05-13] MEDS: Sodium Chloride 0.9% 10 ML Syringe FLUSH PRN (17:00)
[2024-05-13] MEDS: Sodium Chloride 0.9% 1,000 ML IV ONE (17:00)
== END 2024-05-13 18:06 | disposition home or self-care (01) ==
LOC: DL.ED 15:30
DX: S41.102A Unspecified open wound of left upper arm, initial encounter (principal); S41.101A Unspecified open wound of right upper arm, initial encounter; S31.109A Unspecified open wound of abdominal wall, unspecified quadrant without penetration into peritoneal cavity, initial encounter; S81.001A Unspecified open wound, right knee, initial encounter; I10 Essential (primary) hypertension; I25.10 Atherosclerotic heart disease of native coronary artery without angina pectoris; J44.9 Chronic obstructive pulmonary disease, unspecified; I25.2 Old myocardial infarction; F17.210 Nicotine dependence, cigarettes, uncomplicated; Z95.5 Presence of coronary angioplasty implant and graft; Z79.82 Long term (current) use of aspirin; Z79.899 Other long term (current) drug therapy; W01.0XXA Fall on same level from slipping, tripping and stumbling without subsequent striking against object, initial encounter; Y92.007 Garden or yard of unspecified non-institutional (private) residence as the place of occurrence of the external cause
CPT/HCPCS: 96360; 99282; 99283-25; J3490; J7030